=== PATIENT | male | born 1970 | race Caucasian/White ===

== ENCOUNTER → 2018-06-27 | Outpatient (CLI) | payer BC | LOC: COL.VAS 13:40 | DX: Z13.89 Encounter for screening for other disorder (principal); I82.4Z1 Acute embolism and thrombosis of unspecified deep veins of right distal lower extremity ==

== ENCOUNTER 2020-01-27 13:23 | Emergency (ER) | payer BC ==
[2020-01-27] MEDS ORDERED: TUSS PO (15:17)
[2020-01-27 16:15] LABS: BASO % 0.2 % (0.0-2.0); GRAN # 2.8 (1.4-6.5); GRAN % 57.4 % (42.2-75.2); HEMATOCRIT 44.8 % (42.0-52.0); HEMOGLOBIN 15.1 g/dl (13.5-18.0); LYMPH # 1.6 (1.2-3.4); LYMPH % 32.7 % (20.0-51.0); MEAN CELL VOLUME 88 fl (80.0-100.0); MEAN CORPUSCULAR HEMOGLOBIN 30 pg (27.0-31.0); MEAN CORPUSCULAR HGB CONC 34 g/dl (33.0-37.0); MEAN PLATELET VOLUME 10.5 fl (7.4-10.4); MONO # 0.5 (0.1-0.6); MONO % 9.5 % (1.7-9.3); PLATELET COUNT 130 K/mm3 (130-400); RED BLOOD COUNT 5.07 M/mm3 (4.20-5.60); REDCELL DISTRIBUTION WIDTH-CV 12.7 % (11.5-14.5)
[2020-01-27 16:17] LABS: CALCIUM 8.1 mg/dL (8.4-10.2); CREATININE, serum 0.98 (0.66-1.25); POTASSIUM 3.9 mmol/L (3.4-5.0)
[2020-01-27] MEDS ORDERED: ASPIRIN 81M81 MG/TA2 PO (16:32)
[2020-01-27] MEDS ORDERED: OMNICEF 300MG300 MG PO (16:53)
[2020-01-27] MEDS ORDERED: ZITHROMAX 250M250 MG PO (16:53)
[2020-01-27 17:59] VITALS: BP 115/84; PULSE 84; TEMP 101.2
[2020-01-30] VITALS (31 sets, daily range): O2SAT 92–98
== END 2020-01-27 17:30 | disposition home or self-care (01) ==
LOC: COL.ER 13:23
PROVIDERS: Emergency Medicine
DX: J84.9 Interstitial pulmonary disease, unspecified (principal); Z79.82 Long term (current) use of aspirin
CPT/HCPCS: A4216; J0696; J7030

== ENCOUNTER 2020-01-30 15:06 | Inpatient (IN) | payer BC ==
[2020-01-30] VITALS (292 sets, daily range): BP systolic 128–135; BP diastolic 81–83; PULSE 81–82; TEMP 100.2–101; O2SAT 78–98
[~2020-01-30] VITALS: Ht 177.8 cm; Wt 86.0 kg
[~2020-01-30 15:06] MED LIST: ASPIRIN 81M81 MG/TA2 PO; OMNICEF 300MG300 MG PO; TUSS PO; ZITHROMAX 250M250 MG PO
--- NOTE | 2020-01-30 16:00 | NUR ---
Patient direct admitted from home to ICU 3. Brought to hospital by for admission. Changed into gown and monitors applied. [place] patient to room and ICU. Call light at side and explained how to use.
[2020-01-30 16:22] LABS: ARTERIAL BLD GAS O2 SATURATION 95.4 % (92-100); ARTERIAL BLD GAS TCO2 CT 22.5; ARTERIAL BLOOD GAS BASE EXCESS 0.4 (-2-2); ARTERIAL BLOOD GAS HCO3 21.6 meq/L (22-26); ARTERIAL BLOOD GAS PCO2 26.8 mmHg (35-45); ARTERIAL BLOOD GAS PO2 71.8 mmHg (80-100); ARTERIAL BLOOD GAS pH 7.53 (7.35-7.45)
[2020-01-30 16:35] LABS: BASO % 0.2 % (0.0-2.0); GRAN # 4.7 (1.4-6.5); GRAN % 78.3 % (42.2-75.2); HEMATOCRIT 44.4 % (42.0-52.0); HEMOGLOBIN 14.9 g/dl (13.5-18.0); LYMPH # 0.9 (1.2-3.4); LYMPH % 15.2 % (20.0-51.0); MEAN CELL VOLUME 88 fl (80.0-100.0); MEAN CORPUSCULAR HEMOGLOBIN 30 pg (27.0-31.0); MEAN CORPUSCULAR HGB CONC 34 g/dl (33.0-37.0); MEAN PLATELET VOLUME 10.1 fl (7.4-10.4); MONO # 0.4 (0.1-0.6); PLATELET COUNT 165 K/mm3 (130-400); RED BLOOD COUNT 5.05 M/mm3 (4.20-5.60); REDCELL DISTRIBUTION WIDTH-CV 12.8 % (11.5-14.5)
[2020-01-30 16:44] LABS: BILIRUBIN,TOTAL 0.8 mg/dL (0.0-1.0); CALCIUM 7.8 mg/dL (8.4-10.2); CREATININE, serum 0.92 (0.66-1.25); MAGNESIUM 2.3 mg/dL (1.6-2.3); PHOSPHOROUS 2.2 mg/dL (2.5-4.5); POTASSIUM 3.6 mmol/L (3.4-5.0); TOTAL PROTEIN 7.2 gm/dL (6.4-8.2)
--- NOTE | 2020-01-30 19:35 | NUR ---
Report given to Jeanette HUGHES
--- NOTE | 2020-01-30 21:35 | NUR ---
PT RESTING IN BED, C/O OF 6/10 CHEST PAIN THAT IS NOT NEW AND HE HAS BEEN HAVING SINCE HIS COUGHING HAS WORSENED. DENIES ANY OTHER PAIN. STATES HE IS SOB WITH ALOT OF ACTIVITY BUT STILL ABLE TO AMBULATE INDEPENDENTLY. PT WAS ABLE TO GO TO THE RESTROOM WITH STANDBY ASSIST, AND STATES HE VOIDED AND HAD DIARRHEA. PT ABLE TO PRODUCE SPUTUM SAMPLE THAT WILL BE SENT TO LAB. TEMP 101.0, PT GIVEN PRN TYLENOL. OTHER VSS. WILL CONTINUE TO MONITOR PT STATUS AND UPDATE PROVIDERS NEEDED.
--- NOTE | 2020-01-30 22:12 | NUR ---
[facility] was called for possible throat lozenge order per pt request. RN notified that [facility] was not writting orders for this pt and questions re; orders should be referred to [facility]. Will continue to monitor.
--- NOTE | 2020-01-30 22:20 | NUR ---
Pt placed on O2 2L NC secondary to O2 sat in low 90's (90-92%). Will continue to monitor pt status and update providers as per order notification perameters.
[2020-01-31] VITALS (1242 sets, daily range): BP systolic 118–1255; BP diastolic 69–85; PULSE 67–82; TEMP 98.2–102.7; O2SAT 81–100
--- NOTE | 2020-01-31 01:05 | NUR ---
PT NOTED TO HAVE TEMP 102.7, TYLENOL GIVEN AND ROOM COOLED. WILL RE-ASSESS IN 1H. AND UPDATE PROVIDERS NEEDED.
[2020-01-31 05:45] LABS: BASO % 0.1 % (0.0-2.0); GRAN # 5.6 (1.4-6.5); GRAN % 76.3 % (42.2-75.2); HEMATOCRIT 41.7 % (42.0-52.0); LYMPH # 1.3 (1.2-3.4); LYMPH % 18.2 % (20.0-51.0); MEAN CELL VOLUME 88 fl (80.0-100.0); MEAN CORPUSCULAR HEMOGLOBIN 30 pg (27.0-31.0); MEAN CORPUSCULAR HGB CONC 34 g/dl (33.0-37.0); MEAN PLATELET VOLUME 9.9 fl (7.4-10.4); MONO # 0.4 (0.1-0.6); MONO % 5.1 % (1.7-9.3); PLATELET COUNT 163 K/mm3 (130-400); RED BLOOD COUNT 4.73 M/mm3 (4.20-5.60); REDCELL DISTRIBUTION WIDTH-CV 12.8 % (11.5-14.5)
[2020-01-31 05:59] LABS: CALCIUM 7.7 mg/dL (8.4-10.2); CREATININE, serum 0.81 (0.66-1.25); MAGNESIUM 2.3 mg/dL (1.6-2.3); POTASSIUM 3.8 mmol/L (3.4-5.0)
--- NOTE | 2020-01-31 07:13 | NUR ---
0000 E-ICU WAS CALLED RE: LOSENGES FOR PT THROAT. PT CARE TURNED OVER TO MAGALIE HUGHES.
--- NOTE | 2020-01-31 08:00 | NUR ---
Shift assessment complete at this time. Plan of care reviewed at bedside with patient. Additional time taken to address all question or concerns. Vitals stable at this time. Pt denies pain or any other discomforts at this time. Bed in low position, call light within reach, will continue to monitor.
--- NOTE | 2020-01-31 12:00 | NUR ---
Shift reassessment complete at this time. No changes from previous assessment noted. Pt reports pleuritic pain only with coughing and denies any other pains or discomforts. Temperature of 102.6, otherwise all other vitals currently stable. Bed in low position, call light within reach, will continue to monitor.
--- NOTE | 2020-01-31 15:34 | NUR ---
Vancomycin Initial Dosing Pharmacy Note Ordering provider: MD Tameka Indication/duration: PNA Relevant comorbidities: COVID-19 (+) LABS: WBC 7.3, SCr 0.8, CrCl >100 Recommendation: vancomycin 17 mg/kg Maintenance dose: 1.5 grams every 8 hours Trough goal: 15-20 ug/mL. trough 01/31 @1530
--- NOTE | 2020-01-31 16:00 | NUR ---
Shift reassessment complete at this time. No changes from previous assessment noted. Vitals stable at this time. Pt reports [id number] pleuritic pain with coughing and denies need for further intervention beyond PRN acetaminophen and ibuprofen. Pt denies any other pain, discomforts, or complaints at this time. Bed in low position, call light within reach, will continue to monitor.
--- NOTE | 2020-01-31 19:12 | NUR ---
Bedside report given to ELLEN Garcia.
--- NOTE | 2020-01-31 20:05 | NUR ---
Patient assessment completed at this time, please see documentation for details. Patient resting in bed, no issues to report at this time.
[2020-02-01] VITALS (1267 sets, daily range): BP systolic 122–133; BP diastolic 80–88; PULSE 58–76; TEMP 98.2–100.9; O2SAT 69–100
[2020-02-01 05:24] LABS: ALBUMIN 3.1 gm/dL (3.5-5.0); BILIRUBIN,TOTAL 0.9 mg/dL (0.0-1.0); CALCIUM 7.7 mg/dL (8.4-10.2); CREATININE, serum 0.71 (0.66-1.25); MAGNESIUM 2.3 mg/dL (1.6-2.3); PHOSPHOROUS 3.8 mg/dL (2.5-4.5); POTASSIUM 3.8 mmol/L (3.4-5.0)
--- NOTE | 2020-02-01 08:00 | NUR ---
Shift assessment complete at this time. Plan of care reviewed at bedside with patient. Additional time taken to address all questions, needs, or concerns with patient. Vitals stable at this time. Pt reports [id number] pleuritic pain with coughing and denies any other pains or discomforts at this time. Bed in low position, call light within reach, will continue to monitor.
--- NOTE | 2020-02-01 12:00 | NUR ---
Shift reassessment complete at this time. Changes from previous assessment noted in documentation. Vitals stable at this time. Pt reports mild pleuritic chest pain with coughing and denies need for further intervention for pain beyond PRN acetaminophen and ibuprofen. Pt denies any other pains or discomforts at this time. Bed in low position, call light within reach, will continue to monitor.
--- NOTE | 2020-02-01 14:24 | NUR ---
Plans to return home with [place] . Patient reports that he resides locally. Patient denies the use of any DME. Patient denies the use of any HHS. Patient reports PCP Dr. Carmichael. Chris. Patient prefers RX from [facility] on [address]. Patient reports that he has a living will but no DPOA, is listed on LW and Father Massimo as secondary. Denies the uses of any 02 devices. Nothing further at this time. Will continue to follow for care needs.
--- NOTE | 2020-02-01 16:00 | NUR ---
Shift reassessment complete at this time. No changes from previous assessment noted. Vitals stable at this time. Pt c/o [id number] pleuritic pain with coughing and denies need for further intervention for pain at this time beyond PRN acetaminophen and ibuprofen. Pt denies any other pains or discomforts. Bed in low position, call light within reach, will continue to monitor.
--- NOTE | 2020-02-01 18:50 | NUR ---
Report given to ELLEN Welsh.
--- NOTE | 2020-02-01 22:29 | NUR ---
ASKED PATIENT ABOUT CHILLS, TEMP, PAIN, PATIENT DENIES HAVING ANY DIFFICULY, WANTS TO AWAIT ON IBUPROFIN UNTIL LATER IF NEEDED,
--- NOTE | 2020-02-01 23:40 | NUR ---
Patient feels aches and genralised pain 02/19, temp 99.4, ibuprofin 400 mg administered po. steady cough while awake.
[2020-02-02] VITALS (647 sets, daily range): BP systolic 131–139; BP diastolic 82–89; PULSE 56–88; TEMP 98.1–100.5; O2SAT 75–100
[2020-02-02 07:43] LABS: HEMATOCRIT 39.2 % (42.0-52.0); HEMOGLOBIN 13.3 g/dl (13.5-18.0); MEAN CELL VOLUME 88 fl (80.0-100.0); MEAN CORPUSCULAR HEMOGLOBIN 30 pg (27.0-31.0); MEAN CORPUSCULAR HGB CONC 34 g/dl (33.0-37.0); MEAN PLATELET VOLUME 9.5 fl (7.4-10.4); PLATELET COUNT 241 K/mm3 (130-400); RED BLOOD COUNT 4.46 M/mm3 (4.20-5.60)
[2020-02-02 08:03] LABS: ALBUMIN 3.2 gm/dL (3.5-5.0); BILIRUBIN,TOTAL 0.8 mg/dL (0.0-1.0); CREATININE, serum 0.81 (0.66-1.25); MAGNESIUM 2.3 mg/dL (1.6-2.3); PHOSPHOROUS 3.9 mg/dL (2.5-4.5); POTASSIUM 3.9 mmol/L (3.4-5.0); TOTAL PROTEIN 6.2 gm/dL (6.4-8.2)
[2020-02-02 08:06] LABS: BAND 1 % (0-10); EOSINOPHIL 1 % (0-4); LYMPHOCYTE 15 % (20.0-51.0); METAMYELOCYTE 1 % (0-0); NEUTROPHILS 78 % (42.0-75.2); PLATELET ESTIMATE NORMAL (NORMAL)
--- NOTE | 2020-02-02 08:20 | NUR ---
Pt placed on O2 per cannula overnight for SPO2 high eighties. CXR stable this AM. All labs reviewed Vanco T therapeutic. Breakfast provided
[2020-02-03] VITALS (506 sets, daily range): BP systolic 127–147; BP diastolic 80–90; PULSE 65–75; TEMP 97.9–100.3; O2SAT 83–98
[2020-02-03 05:54] LABS: ALBUMIN 3.2 gm/dL (3.5-5.0); BILIRUBIN,TOTAL 0.9 mg/dL (0.0-1.0); CREATININE, serum 0.79 (0.66-1.25); HEMATOCRIT 40.3 % (42.0-52.0); HEMOGLOBIN 13.4 g/dl (13.5-18.0); MAGNESIUM 2.3 mg/dL (1.6-2.3); MEAN CELL VOLUME 88 fl (80.0-100.0); MEAN CORPUSCULAR HEMOGLOBIN 29 pg (27.0-31.0); MEAN CORPUSCULAR HGB CONC 33 g/dl (33.0-37.0); MEAN PLATELET VOLUME 9.8 fl (7.4-10.4); PHOSPHOROUS 4.1 mg/dL (2.5-4.5); PLATELET COUNT 277 K/mm3 (130-400); POTASSIUM 3.9 mmol/L (3.4-5.0); RED BLOOD COUNT 4.57 M/mm3 (4.20-5.60); REDCELL DISTRIBUTION WIDTH-CV 12.9 % (11.5-14.5); TOTAL PROTEIN 6.3 gm/dL (6.4-8.2)
[2020-02-03 07:29] LABS: BAND 1 % (0-10); LYMPHOCYTE 24 % (20.0-51.0); NEUTROPHILS 65 % (42.0-75.2); PLATELET ESTIMATE NORMAL (NORMAL)
--- NOTE | 2020-02-03 11:23 | NUR ---
The patient is on oxygen at night. Will continue to monitor for needs.
--- NOTE | 2020-02-03 20:00 | NUR ---
Assessment complete; Patient alert and oriented. Reports some shortness of breath with exertion but states it has improved since admission. Able to performs ADL's independently in room. IV site in wrist leaked while attempting to flush; removed IV. Received ok per Shannon Awan APRN to not re-start an IV as it is planned for patient to discharge tomorrow and has no IV medications. Denies any other needs or concerns at this time.
--- NOTE | 2020-02-03 20:07 | NUR ---
Report to oncoming shift. Pt received Ibuprofen per his request for low grade temps. Rested through afternoon.
[2020-02-04] VITALS (335 sets, daily range): BP systolic 143; BP diastolic 83–91; PULSE 59–78; TEMP 98.6–98.7; O2SAT 86–99
--- NOTE | 2020-02-04 05:15 | NUR ---
Patient resting in bed; denies any needs or concerns at this time. RT at bedside for EKG. Will continue to monitor.
[2020-02-04 07:21] LABS: HEMATOCRIT 39.4 % (42.0-52.0); HEMOGLOBIN 13.2 g/dl (13.5-18.0); MEAN CELL VOLUME 88 fl (80.0-100.0); MEAN CORPUSCULAR HEMOGLOBIN 30 pg (27.0-31.0); MEAN CORPUSCULAR HGB CONC 34 g/dl (33.0-37.0); MEAN PLATELET VOLUME 9.7 fl (7.4-10.4); PLATELET COUNT 360 K/mm3 (130-400); RED BLOOD COUNT 4.48 M/mm3 (4.20-5.60); REDCELL DISTRIBUTION WIDTH-CV 12.7 % (11.5-14.5)
--- NOTE | 2020-02-04 07:29 | NUR ---
Report received from Tatum HUGHES and care resumed.
[2020-02-04 07:33] LABS: ALBUMIN 3.3 gm/dL (3.5-5.0); BILIRUBIN,TOTAL 0.8 mg/dL (0.0-1.0); CALCIUM 8.1 mg/dL (8.4-10.2); CREATININE, serum 0.81 (0.66-1.25); MAGNESIUM 2.4 mg/dL (1.6-2.3); PHOSPHOROUS 3.7 mg/dL (2.5-4.5); POTASSIUM 3.8 mmol/L (3.4-5.0); TOTAL PROTEIN 6.6 gm/dL (6.4-8.2)
[2020-02-04 08:57] LABS: BAND 1 % (0-10); EOSINOPHIL 1 % (0-4); LYMPHOCYTE 16 % (20.0-51.0); NEUTROPHILS 71 % (42.0-75.2); PLATELET ESTIMATE NORMAL (NORMAL)
--- NOTE | 2020-02-04 11:37 | NUR ---
The patient is to discharge home today, 02/03. Dr. Maher reviewed discharged instructions with the patient via telephone. The patient is requiring oxygen. Due to Covid-19 diagnosis, [facility] contacted the patient via phone and reviewed the DME patient choice for the patient, form placed in the chart. The patient chose [facility]. [facility] faxed order to [facility]. [facility] to deliver the oxygen before discharge. There are no additional needs at this time.
[2020-02-04] MEDS ORDERED: ZITHROMAX 250M250 MG PO (12:29)
[2020-02-04] MEDS ORDERED: PLAQUENIL 200M200 MG PO (12:30)
--- NOTE | 2020-02-04 15:07 | NUR ---
Pt given discharge instructions and taken out by wheelchair at 1205.
== END 2020-02-04 12:05 | disposition home or self-care (01) | DRG 193 ==
LOC: IMCU 15:06 → ICU 16:10
PROVIDERS: Internal Medicine; Internal Medicine Pulmonary Disease; ADMIT Student in an Organized Health Care Education/Training Program
DX: J12.89 Other viral pneumonia (principal); J96.01 Acute respiratory failure with hypoxia; A08.39 Other viral enteritis; R79.89 Other specified abnormal findings of blood chemistry; B97.29 Other coronavirus as the cause of diseases classified elsewhere; Z86.718 Personal history of other venous thrombosis and embolism; Z79.82 Long term (current) use of aspirin
CPT/HCPCS: A4216; A9284; J0692; J1650; J3370; J7040; J7050; J7120

== ENCOUNTER → 2020-02-13 | Outpatient (CLI) | payer BC ==
[~2020-02-13] MED LIST changes: +PLAQUENIL 200M200 MG PO
[2020-02-13 10:06] LABS: ALBUMIN 4.3 gm/dL (3.5-5.0); BILIRUBIN,TOTAL 1.1 mg/dL (0.0-1.0); CALCIUM 9.2 mg/dL (8.4-10.2); CREATININE, serum 0.83 (0.66-1.25); POTASSIUM 4.4 mmol/L (3.4-5.0)
== END ==
LOC: COL.RAD 09:00
PROVIDERS: Family Medicine
DX: U07.1 COVID-19 (principal); J12.89 Other viral pneumonia; R74.8 Abnormal levels of other serum enzymes

== ENCOUNTER 2021-11-03 11:10 | Day surgery (SDC) | payer BC ==
[2021-11-03] VITALS (10 sets, daily range): BP systolic 126–138; BP diastolic 78–97; PULSE 58–101; TEMP 98.1
[~2021-11-03] VITALS: Ht 177.8 cm; Wt 105.4 kg
[2021-11-03] MEDS ORDERED: CALAN120 MG PO (11:25)
[2021-11-03] MEDS ORDERED: XARELTO10 MG PO (11:25)
[2021-11-03] MEDS ORDERED: VALTREX 50500 MG/TAB PO (11:26)
[2021-11-03] MEDS ORDERED: VITAMINC1000TA PO (11:27)
[2021-11-03] MEDS ORDERED: VITAMIN D31000 I1 PO (11:27)
[2021-11-03] MEDS ORDERED: MULTIPLE VITAMI1 TA5 PO (11:27)
[2021-11-03] MEDS ORDERED: TESTIM1% TP (11:28)
[2021-11-03] MEDS ORDERED: DHEA25 M3 PO (11:29)
[2021-11-03] MEDS ORDERED: NATURE S BLEND PO (11:30)
[2021-11-03] MEDS ORDERED: MELATONIN5 M1 SL (11:31)
[2021-11-03] MEDS ORDERED: CHONDROITIN/GLU1 TA5 PO (11:31)
[2021-11-03] MEDS ORDERED: PHARMASSURE L-500 MG PO (11:32)
[2021-11-03] MEDS ORDERED: MOTRIN 800800 MG/TAB PO (11:33)
[2021-11-03] MEDS ORDERED: VIAGRA100 M1 PO (11:34)
[2021-11-03] MEDS ORDERED: TYLENOL 500MG500 MG PO (11:34)
[2021-11-03] MEDS ORDERED: PROAIR HFA0.09 MG/AC IH (11:34)
[2021-11-03 11:59] LABS: HEMATOCRIT 39.8 % (42.0-52.0); HEMOGLOBIN 13.8 g/dl (13.5-18.0); MEAN CELL VOLUME 86 fl (80.0-100.0); MEAN CORPUSCULAR HEMOGLOBIN 30 pg (27-31); MEAN CORPUSCULAR HGB CONC 35 g/dl (33.0-37.0); PLATELET COUNT 232 K/mm3 (130-400); RED BLOOD COUNT 4.64 M/mm3 (4.20-5.60); REDCELL DISTRIBUTION WIDTH-CV 12.7 % (11.5-14.5)
[2021-11-03 12:03] LABS: INR 1.1 (0.8-3.0); PARTIAL THROMBOPLASTIN TIME 29.3 SECONDS (26.0-37.0); PROTHROMBIN TIME 12.3 SECONDS (9.7-12.8)
[2021-11-03 12:08] LABS: CALCIUM 8.9 mg/dL (8.4-10.2); CREATININE, serum 0.87 mg/dL (0.72-1.25); POTASSIUM 4.5 mmol/L (3.5-4.5)
--- NOTE | 2021-11-03 12:31 | NUR ---
SEE MERGE FOR ALL MEDICATION ADMINISTRATION TIMES, INTRA AND POST SEDATION ASSESSMENTS
[2021-11-03] MEDS ORDERED: TAMBOCOR50 MG PO (14:12)
--- NOTE | 2021-11-03 14:15 | NUR ---
Report from Manuel HUGHES. Transferred by bed from [facility]. Right Tband with 12 cc air CD&I, good pulses and cap refill < 3 secs noted. VSS
[2021-11-03] MEDS ORDERED: LASIX 20MG TABL20 MG PO (14:53)
--- NOTE | 2021-11-03 17:00 | NUR ---
Ambulated to bathroom with steady gait. INT discontinued intact. Right Tband released of 12 cc air and dressing applied. Discharge instructions given. Transferred to private car by lev
== END 2021-11-03 17:38 | disposition home or self-care (01) ==
LOC: COL.CAR 11:10
PROVIDERS: Internal Medicine Interventional Cardiology
DX: R07.9 Chest pain, unspecified (principal); R94.39 Abnormal result of other cardiovascular function study; I49.3 Ventricular premature depolarization; I47.2 Ventricular tachycardia; Z86.718 Personal history of other venous thrombosis and embolism; Z79.899 Other long term (current) drug therapy
CPT/HCPCS: C1769; C1887; J1644; J2250; J3010